=== PATIENT | male | born 1965 | race Caucasian/White ===

== ENCOUNTER 2016-04-06 01:39 | Emergency (ER) | payer SELFPAY ==
[2016-04-06] MEDS ORDERED: DIPHTH,PERTUSS(ACELL),TET VAC 0.5 ML VIAL IM V ONE (02:20)
[2016-04-06] MEDS ORDERED: CEPHALEXIN 500 MG CAPSULE ONE (04:04)
--- NOTE | 2016-04-06 07:25 | RAD ---
RIGHT HAND 3 VIEWS HISTORY: Punched glass with associated lacerations. COMPARISONS: None. TECHNIQUE: Frontal, lateral, and oblique views of the right hand. ALIGNMENT: Grossly unremarkable. FRACTURE: No displaced acute fracture. SOFT TISSUES: Grossly unremarkable. RADIOOPAQUE FOREIGN BODY: Radiodense material associated with fingernails. Solitary punctate foreign body measuring 0.6 mm overlying the dorsal aspect of the metacarpals, seen on lateral view only. IMPRESSION: No gross malalignment or displaced acute fracture noted. Submillimetric foreign body seen along the dorsal soft tissues along the metacarpal heads on lateral view only. Findings discussed with Dr. Mixon of the Emergency Medicine clinical service on 04/06/16 at 0720 hours.
== END 2016-04-06 04:15 | disposition home or self-care (01) ==
LOC: ED 01:39
DX: S61.411A Laceration without foreign body of right hand, initial encounter (principal); Z23 Encounter for immunization; F17.210 Nicotine dependence, cigarettes, uncomplicated; W25.XXXA Contact with sharp glass, initial encounter; Y92.9 Unspecified place or not applicable
CPT/HCPCS: 90715; 73130; 90471; 99283 ×2; 12042 ×2; 12002 ×2; A9270